=== PATIENT | male | born 1995 | race Caucasian/White ===

== ENCOUNTER 2021-06-16 12:21 | Inpatient (IN) | payer OTHER ==
[~2021-06-16] VITALS: Ht 188 cm; Wt 83.9 kg
[2021-06-17 19:30] VITALS: BP 140/89
[2021-06-17] MEDS ORDERED: ACETAMINOPHEN 325 MG TABLET PO PRN (20:00)
[2021-06-17] MEDS ORDERED: BISACODYL 5 MG EC TABLET PO PRN (20:15)
[2021-06-17] MEDS ORDERED: MAGNESIUM HYDROXIDE SUSPENSION 30 ML UDCUP PO PRN (20:15)
[2021-06-17] MEDS ORDERED: OxyCODONE HCL/ACETAMINOPHEN 5-325 MG TABLET PO PRN (20:15)
[2021-06-17] MEDS ORDERED: CYCLOBENZAPRINE HCL 10 MG TABLET PO PRN (20:15)
[2021-06-17] MEDS: MELATONIN 3 MG TABLET PO PRN (20:43)
[2021-06-17] MEDS: SENNA 187 MG TABLET PO SCH (20:43)
[2021-06-17] MEDS: ASCORBIC ACID 500 MG TABLET PO SCH (20:43)
[2021-06-17] MEDS: ETHYL ALCOHOL 62% ANTISEPTIC NASAL INHALANT 0.6 ML AMPUL NASAL SCH (20:43)
[2021-06-17] MEDS: DOCUSATE SODIUM 100 MG CAPSULE PO SCH (20:43)
[2021-06-17] MEDS: GABAPENTIN 100 MG CAPSULE PO SCH (20:46)
[2021-06-18 00:34] VITALS: BP 136/68
[2021-06-18] MEDS: DOCUSATE SODIUM 100 MG CAPSULE PO SCH ×2 (08:10→21:44)
[2021-06-18] MEDS: ETHYL ALCOHOL 62% ANTISEPTIC NASAL INHALANT 0.6 ML AMPUL NASAL SCH ×2 (08:10→21:33)
[2021-06-18] MEDS: ASCORBIC ACID 500 MG TABLET PO SCH ×2 (08:10→21:33)
[2021-06-18] MEDS: GABAPENTIN 100 MG CAPSULE PO SCH ×3 (08:10→21:33)
[2021-06-18] MEDS: MULTIVITAMINS WITH MINERALS, THERAPEUTIC TABLET PO SCH (08:10)
[2021-06-18] MEDS: ENOXAPARIN SODIUM 40 MG/0.4 ML PF SYRINGE SQ SCH (08:10)
[2021-06-18] MEDS: TAMSULOSIN HCL 0.4 MG CAPSULE PO SCH (08:10)
[2021-06-18 08:20] VITALS: BP 141/79
[2021-06-18] MEDS: OxyCODONE HCL/ACETAMINOPHEN 10-325 MG TABLET PO PRN ×2 (08:20→21:33)
[2021-06-18 08:38] LABS: BASOPHILS % (AUTO) 1.2 % (0.0-2.0); EOSINOPHILS % (AUTO) 6.9 % (1.0-6.0); HEMOGLOBIN 11.4 g/dL (13.5-17.5); LYMPHOCYTES % (AUTO) 18.1 % (22.0-44.0); MEAN CORPUSCULAR HEMOGLOBIN 30.7 pg (26.0-34.0); MEAN CORPUSCULAR HGB CONC 34.7 G/dL (31.0-37.0); MEAN CORPUSCULAR VOLUME 89 fL (80-100); MONOCYTES # (AUTO) 0.5 K/uL (0.1-1.0); MONOCYTES % (AUTO) 8.9 % (2.0-9.0); NEUTROPHILS # (AUTO) 3.6 K/uL (1.8-7.7); NEUTROPHILS % (AUTO) 64.9 % (40.0-70.0); PLATELET COUNT (AUTO) 188 K/uL (150-450); RED BLOOD CELL COUNT(AUTO) 3.72 MIL/uL (4.50-5.90)
[2021-06-18 09:08] LABS: ALANINE AMINOTRANSFERASE 99 U/L (12-78); ALKALINE PHOSPHATASE 57 U/L (46-116); ANION GAP 9 mmol/L (8-16); ASPARTATE AMINOTRANSFERASE 121 U/L (15-37); BILIRUBIN,TOTAL 1.1 mg/dL (0.1-1.0); CALCIUM, TOTAL 8.3 mg/dL (8.8-10.5); CARBON DIOXIDE 25 mmol/L (22-29); CHLORIDE 105 mmol/L (98-107); CREATININE 1.01 mg/dL (0.60-1.30); GLOMERULAR FILTR. RATE CALC > 60 mL/min (>60); GLUCOSE,RANDOM 131 mg/dL (70-110); POTASSIUM 4.2 mmol/L (3.5-5.1); SODIUM SERUM 139 mmol/L (136-145); TOTAL PROTEIN, SERUM 6.4 g/dL (6.4-8.2); UREA NITROGEN, BLOOD 16 mg/dL (7-18)
[2021-06-18 16:04] VITALS: BP 134/67
[2021-06-18] MEDS: SENNA 187 MG TABLET PO SCH (21:33)
[2021-06-18] MEDS: MELATONIN 3 MG TABLET PO PRN (21:33)
[2021-06-19 05:42] VITALS: BP 140/69
[2021-06-19 08:02] VITALS: BP 123/74
[2021-06-19] MEDS ORDERED: OxyCODONE HCL 5 MG IR TABLET PO PRN (08:45)
[2021-06-19] MEDS: ETHYL ALCOHOL 62% ANTISEPTIC NASAL INHALANT 0.6 ML AMPUL NASAL SCH ×2 (09:14→20:26)
[2021-06-19] MEDS: DOCUSATE SODIUM 100 MG CAPSULE PO SCH ×2 (09:14→20:25)
[2021-06-19] MEDS: TAMSULOSIN HCL 0.4 MG CAPSULE PO SCH (09:14)
[2021-06-19] MEDS: MULTIVITAMINS WITH MINERALS, THERAPEUTIC TABLET PO SCH (09:15)
[2021-06-19] MEDS: ASCORBIC ACID 500 MG TABLET PO SCH ×2 (09:15→20:25)
[2021-06-19] MEDS: GABAPENTIN 100 MG CAPSULE PO SCH ×3 (09:15→20:26)
[2021-06-19] MEDS: ENOXAPARIN SODIUM 40 MG/0.4 ML PF SYRINGE SQ SCH (09:15)
[2021-06-19 17:11] VITALS: BP 130/67
[2021-06-19] MEDS: OxyCODONE HCL 10 MG IR TABLET PO PRN (20:25)
[2021-06-19] MEDS: SENNA 187 MG TABLET PO SCH (20:25)
[2021-06-19] MEDS: MELATONIN 5 MG TABLET PO PRN (20:25)
[2021-06-20 00:35] VITALS: BP 136/86
[2021-06-20] MEDS: ASCORBIC ACID 500 MG TABLET PO SCH ×2 (07:55→21:31)
[2021-06-20] MEDS: TAMSULOSIN HCL 0.4 MG CAPSULE PO SCH (07:55)
[2021-06-20] MEDS: DOCUSATE SODIUM 100 MG CAPSULE PO SCH ×2 (07:55→21:31)
[2021-06-20] MEDS: GABAPENTIN 100 MG CAPSULE PO SCH ×3 (07:55→21:31)
[2021-06-20] MEDS: ETHYL ALCOHOL 62% ANTISEPTIC NASAL INHALANT 0.6 ML AMPUL NASAL SCH ×2 (07:55→21:30)
[2021-06-20] MEDS: MULTIVITAMINS WITH MINERALS, THERAPEUTIC TABLET PO SCH (07:55)
[2021-06-20 07:57] LABS: ALANINE AMINOTRANSFERASE 254 U/L (12-78); ALBUMIN 3.5 g/dL (3.4-5.0); ALKALINE PHOSPHATASE 65 U/L (46-116); ANION GAP 9 mmol/L (8-16); ASPARTATE AMINOTRANSFERASE 150 U/L (15-37); BILIRUBIN,TOTAL 1.1 mg/dL (0.1-1.0); CARBON DIOXIDE 25 mmol/L (22-29); CHLORIDE 104 mmol/L (98-107); CREATININE 0.95 mg/dL (0.60-1.30); GLOMERULAR FILTR. RATE CALC > 60 mL/min (>60); GLUCOSE,RANDOM 96 mg/dL (70-110); POTASSIUM 4.2 mmol/L (3.5-5.1); SODIUM SERUM 138 mmol/L (136-145); TOTAL PROTEIN, SERUM 7.4 g/dL (6.4-8.2); UREA NITROGEN, BLOOD 20 mg/dL (7-18)
[2021-06-20 08:01] VITALS: BP 123/69
[2021-06-20] MEDS: ENOXAPARIN SODIUM 40 MG/0.4 ML PF SYRINGE SQ SCH (09:53)
[2021-06-20 16:02] VITALS: BP 108/67
[2021-06-20] MEDS: SENNA 187 MG TABLET PO SCH (21:30)
[2021-06-20] MEDS: MELATONIN 5 MG TABLET PO PRN (21:31)
[2021-06-21] VITALS: BP 128/64
[2021-06-21 08:00] VITALS: BP 127/69
[2021-06-21 08:06] LABS: HEPATITIS C AB (EIA) <0.1 s/co ratio (0.0-0.9)
[2021-06-21] MEDS: GABAPENTIN 100 MG CAPSULE PO SCH ×3 (09:08→20:16)
[2021-06-21] MEDS: ENOXAPARIN SODIUM 40 MG/0.4 ML PF SYRINGE SQ SCH (09:08)
[2021-06-21] MEDS: ASCORBIC ACID 500 MG TABLET PO SCH ×2 (09:08→20:16)
[2021-06-21] MEDS: TAMSULOSIN HCL 0.4 MG CAPSULE PO SCH (09:08)
[2021-06-21] MEDS: DOCUSATE SODIUM 100 MG CAPSULE PO SCH ×2 (09:08→20:16)
[2021-06-21] MEDS: MULTIVITAMINS WITH MINERALS, THERAPEUTIC TABLET PO SCH (09:08)
[2021-06-21] MEDS: ETHYL ALCOHOL 62% ANTISEPTIC NASAL INHALANT 0.6 ML AMPUL NASAL SCH ×2 (09:09→20:15)
[2021-06-21 16:01] VITALS: BP 127/73
[2021-06-21] MEDS: SENNA 187 MG TABLET PO SCH (20:16)
[2021-06-21] MEDS ORDERED: DOCU-270 PO (21:57)
[2021-06-21] MEDS ORDERED: GABA-1216 PO (21:59)
[2021-06-21] MEDS ORDERED: TAMS-13 PO (21:59)
[2021-06-21] MEDS ORDERED: MULT-1239 PO (22:00)
[2021-06-21] MEDS ORDERED: ASCO500 PO (22:01)
[2021-06-21] MEDS ORDERED: MELA5TAB40 PO (22:03)
[2021-06-22 04:30] VITALS: BP 134/75
[2021-06-22] MEDS: ETHYL ALCOHOL 62% ANTISEPTIC NASAL INHALANT 0.6 ML AMPUL NASAL SCH ×2 (08:09→20:28)
[2021-06-22] MEDS: MULTIVITAMINS WITH MINERALS, THERAPEUTIC TABLET PO SCH (08:09)
[2021-06-22] MEDS: DOCUSATE SODIUM 100 MG CAPSULE PO SCH ×2 (08:09→20:28)
[2021-06-22] MEDS: ENOXAPARIN SODIUM 40 MG/0.4 ML PF SYRINGE SQ SCH (08:09)
[2021-06-22] MEDS: ASCORBIC ACID 500 MG TABLET PO SCH ×2 (08:10→20:28)
[2021-06-22] MEDS: TAMSULOSIN HCL 0.4 MG CAPSULE PO SCH (08:10)
[2021-06-22] MEDS: GABAPENTIN 100 MG CAPSULE PO SCH ×3 (08:10→20:28)
[2021-06-22 09:08] VITALS: BP 132/73
[2021-06-22 16:39] VITALS: BP 119/75
[2021-06-22] MEDS: SENNA 187 MG TABLET PO SCH (20:35)
[2021-06-23] VITALS: BP 113/64
[2021-06-23] MEDS: ETHYL ALCOHOL 62% ANTISEPTIC NASAL INHALANT 0.6 ML AMPUL NASAL SCH ×2 (08:13→20:47)
[2021-06-23] MEDS: MULTIVITAMINS WITH MINERALS, THERAPEUTIC TABLET PO SCH (08:14)
[2021-06-23] MEDS: ASCORBIC ACID 500 MG TABLET PO SCH ×2 (08:14→20:48)
[2021-06-23] MEDS: GABAPENTIN 100 MG CAPSULE PO SCH ×3 (08:14→20:48)
[2021-06-23] MEDS: TAMSULOSIN HCL 0.4 MG CAPSULE PO SCH (08:14)
[2021-06-23] MEDS: DOCUSATE SODIUM 100 MG CAPSULE PO SCH ×2 (08:14→20:48)
[2021-06-23] MEDS: ENOXAPARIN SODIUM 40 MG/0.4 ML PF SYRINGE SQ SCH (08:15)
[2021-06-23 10:31] VITALS: BP 140/79
[2021-06-23 18:02] VITALS: BP 140/92
[2021-06-23] MEDS: TraZODone HCL 100 MG TABLET PO SCH (20:48)
[2021-06-23] MEDS: SENNA 187 MG TABLET PO SCH (20:54)
[2021-06-24 00:06] VITALS: BP 127/75
[2021-06-24] MEDS: TAMSULOSIN HCL 0.4 MG CAPSULE PO SCH (07:36)
[2021-06-24] MEDS: ASCORBIC ACID 500 MG TABLET PO SCH ×2 (07:36→20:53)
[2021-06-24] MEDS: ENOXAPARIN SODIUM 40 MG/0.4 ML PF SYRINGE SQ SCH (07:36)
[2021-06-24] MEDS: MULTIVITAMINS WITH MINERALS, THERAPEUTIC TABLET PO SCH (07:36)
[2021-06-24] MEDS: GABAPENTIN 100 MG CAPSULE PO SCH ×3 (07:36→20:53)
[2021-06-24] MEDS: ETHYL ALCOHOL 62% ANTISEPTIC NASAL INHALANT 0.6 ML AMPUL NASAL SCH ×2 (07:36→20:52)
[2021-06-24] MEDS: DOCUSATE SODIUM 100 MG CAPSULE PO SCH ×2 (07:37→20:52)
[2021-06-24 08:05] VITALS: BP 145/77
[2021-06-24 15:00] VITALS: BP 135/59
[2021-06-24 15:10] LABS: ALANINE AMINOTRANSFERASE 112 U/L (12-78); ALBUMIN 3.9 g/dL (3.4-5.0); ALKALINE PHOSPHATASE 82 U/L (46-116); ANION GAP 6 mmol/L (8-16); ASPARTATE AMINOTRANSFERASE 33 U/L (15-37); BILIRUBIN,TOTAL 0.6 mg/dL (0.1-1.0); CARBON DIOXIDE 31 mmol/L (22-29); CHLORIDE 100 mmol/L (98-107); CREATININE 1.08 mg/dL (0.60-1.30); GLOMERULAR FILTR. RATE CALC > 60 mL/min (>60); GLUCOSE,RANDOM 117 mg/dL (70-110); POTASSIUM 3.9 mmol/L (3.5-5.1); SODIUM SERUM 137 mmol/L (136-145); TOTAL PROTEIN, SERUM 7.5 g/dL (6.4-8.2); UREA NITROGEN, BLOOD 18 mg/dL (7-18)
[2021-06-24] MEDS: TraZODone HCL 100 MG TABLET PO SCH (20:53)
[2021-06-24] MEDS: SENNA 187 MG TABLET PO SCH (20:53)
[2021-06-25 06:19] VITALS: BP 146/74
[2021-06-25] MEDS: DOCUSATE SODIUM 100 MG CAPSULE PO SCH ×2 (09:57→20:59)
[2021-06-25] MEDS: ENOXAPARIN SODIUM 40 MG/0.4 ML PF SYRINGE SQ SCH (09:57)
[2021-06-25] MEDS: ETHYL ALCOHOL 62% ANTISEPTIC NASAL INHALANT 0.6 ML AMPUL NASAL SCH ×2 (09:58→20:58)
[2021-06-25] MEDS: MULTIVITAMINS WITH MINERALS, THERAPEUTIC TABLET PO SCH (09:58)
[2021-06-25] MEDS: GABAPENTIN 100 MG CAPSULE PO SCH ×3 (09:58→20:59)
[2021-06-25] MEDS: ASCORBIC ACID 500 MG TABLET PO SCH ×2 (09:58→20:59)
[2021-06-25] MEDS: TAMSULOSIN HCL 0.4 MG CAPSULE PO SCH (09:58)
[2021-06-25 12:03] VITALS: BP 130/71
[2021-06-25 16:33] VITALS: BP 142/85
[2021-06-25] MEDS: TraZODone HCL 100 MG TABLET PO SCH (20:59)
[2021-06-25] MEDS: SENNA 187 MG TABLET PO SCH (20:59)
[2021-06-25] MEDS: OxyCODONE HCL 10 MG IR TABLET PO PRN (21:20)
[2021-06-26 06:13] VITALS: BP 138/66
[2021-06-26] MEDS: DOCUSATE SODIUM 100 MG CAPSULE PO SCH ×2 (08:39→22:05)
[2021-06-26] MEDS: ENOXAPARIN SODIUM 40 MG/0.4 ML PF SYRINGE SQ SCH (08:39)
[2021-06-26] MEDS: ASCORBIC ACID 500 MG TABLET PO SCH ×2 (08:39→22:05)
[2021-06-26] MEDS: ETHYL ALCOHOL 62% ANTISEPTIC NASAL INHALANT 0.6 ML AMPUL NASAL SCH ×2 (08:39→22:06)
[2021-06-26] MEDS: GABAPENTIN 100 MG CAPSULE PO SCH ×3 (08:39→22:06)
[2021-06-26] MEDS: TAMSULOSIN HCL 0.4 MG CAPSULE PO SCH (08:40)
[2021-06-26] MEDS: MULTIVITAMINS WITH MINERALS, THERAPEUTIC TABLET PO SCH (08:40)
[2021-06-26 15:34] VITALS: BP 134/75
[2021-06-26 16:00] VITALS: BP 135/71
[2021-06-26] MEDS: SENNA 187 MG TABLET PO SCH (22:05)
[2021-06-26] MEDS: TraZODone HCL 100 MG TABLET PO SCH (22:05)
[2021-06-26] MEDS: DiphenhydrAMINE HCL 25 MG CAPSULE PO PRN (22:06)
[2021-06-27] VITALS: BP 145/75
[2021-06-27] MEDS ORDERED: TRAZ-257 PO (05:44)
[2021-06-27] MEDS: ETHYL ALCOHOL 62% ANTISEPTIC NASAL INHALANT 0.6 ML AMPUL NASAL SCH ×2 (08:19→21:08)
[2021-06-27] MEDS: MULTIVITAMINS WITH MINERALS, THERAPEUTIC TABLET PO SCH (08:20)
[2021-06-27] MEDS: ASCORBIC ACID 500 MG TABLET PO SCH ×2 (08:20→21:08)
[2021-06-27] MEDS: DOCUSATE SODIUM 100 MG CAPSULE PO SCH ×2 (08:20→21:08)
[2021-06-27] MEDS: GABAPENTIN 100 MG CAPSULE PO SCH ×3 (08:20→22:12)
[2021-06-27] MEDS: TAMSULOSIN HCL 0.4 MG CAPSULE PO SCH (08:20)
[2021-06-27] MEDS: ENOXAPARIN SODIUM 40 MG/0.4 ML PF SYRINGE SQ SCH (08:21)
[2021-06-27 08:50] VITALS: BP 136/64
[2021-06-27 15:18] VITALS: BP 138/71
[2021-06-27] MEDS: SENNA 187 MG TABLET PO SCH (21:08)
[2021-06-27] MEDS: TraZODone HCL 100 MG TABLET PO SCH (21:08)
[2021-06-27 23:00] VITALS: BP 121/66
[2021-06-27] MEDS: DiphenhydrAMINE HCL 25 MG CAPSULE PO PRN (23:01)
[2021-06-28] MEDS: ETHYL ALCOHOL 62% ANTISEPTIC NASAL INHALANT 0.6 ML AMPUL NASAL SCH ×2 (08:23→21:24)
[2021-06-28] MEDS: DOCUSATE SODIUM 100 MG CAPSULE PO SCH ×3 (08:23→21:00)
[2021-06-28] MEDS: GABAPENTIN 100 MG CAPSULE PO SCH ×3 (08:23→21:26)
[2021-06-28] MEDS: TAMSULOSIN HCL 0.4 MG CAPSULE PO SCH (08:23)
[2021-06-28] MEDS: ENOXAPARIN SODIUM 40 MG/0.4 ML PF SYRINGE SQ SCH (08:23)
[2021-06-28] MEDS: MULTIVITAMINS WITH MINERALS, THERAPEUTIC TABLET PO SCH (08:23)
[2021-06-28] MEDS: ASCORBIC ACID 500 MG TABLET PO SCH ×2 (08:23→21:25)
[2021-06-28 08:50] VITALS: BP 125/76
[2021-06-28 11:49] LABS: HEMATOCRIT 40.1 % (41-53); HEMOGLOBIN 13.7 g/dL (13.5-17.5); LYMPHOCYTES # (AUTO) 1.4 K/uL (1.0-4.8); LYMPHOCYTES % (AUTO) 22.4 % (22.0-44.0); MEAN CORPUSCULAR HEMOGLOBIN 30.2 pg (26.0-34.0); MEAN CORPUSCULAR VOLUME 89 fL (80-100); MONOCYTES # (AUTO) 0.4 K/uL (0.1-1.0); MONOCYTES % (AUTO) 5.8 % (2.0-9.0); NEUTROPHILS # (AUTO) 4.2 K/uL (1.8-7.7); NEUTROPHILS % (AUTO) 69.8 % (40.0-70.0); PLATELET COUNT (AUTO) 408 K/uL (150-450); RED BLOOD CELL COUNT(AUTO) 4.52 MIL/uL (4.50-5.90); RED CELL DISTRIBUTION WIDTH 13.9 % (11.5-14.5)
[2021-06-28 16:00] VITALS: BP 140/74
[2021-06-28] MEDS: SENNA 187 MG TABLET PO SCH (21:00)
[2021-06-28] MEDS: TraZODone HCL 100 MG TABLET PO SCH (21:25)
[2021-06-28] MEDS: DiphenhydrAMINE HCL 25 MG CAPSULE PO PRN (22:27)
[2021-06-29] VITALS: BP 132/70
[2021-06-29] MEDS: DOCUSATE SODIUM 100 MG CAPSULE PO SCH ×3 (08:17→21:00)
[2021-06-29] MEDS: ASCORBIC ACID 500 MG TABLET PO SCH ×2 (08:17→21:14)
[2021-06-29] MEDS: ENOXAPARIN SODIUM 40 MG/0.4 ML PF SYRINGE SQ SCH (08:17)
[2021-06-29] MEDS: ETHYL ALCOHOL 62% ANTISEPTIC NASAL INHALANT 0.6 ML AMPUL NASAL SCH ×2 (08:17→21:13)
[2021-06-29] MEDS: GABAPENTIN 100 MG CAPSULE PO SCH ×3 (08:18→21:14)
[2021-06-29] MEDS: TAMSULOSIN HCL 0.4 MG CAPSULE PO SCH (08:18)
[2021-06-29] MEDS: MULTIVITAMINS WITH MINERALS, THERAPEUTIC TABLET PO SCH (08:18)
[2021-06-29 08:30] VITALS: BP 136/66
[2021-06-29 16:00] VITALS: BP 122/70
[2021-06-29] MEDS: SENNA 187 MG TABLET PO SCH (21:00)
[2021-06-29] MEDS: TraZODone HCL 100 MG TABLET PO SCH (21:14)
[2021-06-29] MEDS: DiphenhydrAMINE HCL 25 MG CAPSULE PO PRN (21:14)
[2021-06-30 06:15] VITALS: BP 129/73
[2021-06-30] MEDS: ENOXAPARIN SODIUM 40 MG/0.4 ML PF SYRINGE SQ SCH (08:29)
[2021-06-30] MEDS: GABAPENTIN 100 MG CAPSULE PO SCH ×3 (08:29→20:16)
[2021-06-30] MEDS: MULTIVITAMINS WITH MINERALS, THERAPEUTIC TABLET PO SCH (08:29)
[2021-06-30] MEDS: TAMSULOSIN HCL 0.4 MG CAPSULE PO SCH (08:29)
[2021-06-30] MEDS: ASCORBIC ACID 500 MG TABLET PO SCH ×2 (08:29→20:20)
[2021-06-30] MEDS: ETHYL ALCOHOL 62% ANTISEPTIC NASAL INHALANT 0.6 ML AMPUL NASAL SCH ×2 (08:36→20:16)
[2021-06-30] MEDS: DOCUSATE SODIUM 100 MG CAPSULE PO SCH ×2 (08:36→20:16)
[2021-06-30 08:55] VITALS: BP 126/67
[2021-06-30 16:00] VITALS: BP 133/75
[2021-06-30] MEDS: DiphenhydrAMINE HCL 25 MG CAPSULE PO PRN (20:16)
[2021-06-30] MEDS: SENNA 187 MG TABLET PO SCH (20:16)
[2021-06-30] MEDS: TraZODone HCL 100 MG TABLET PO SCH (20:16)
[2021-07-01 06:21] VITALS: BP 118/66
[2021-07-01 08:00] VITALS: BP 130/80
[2021-07-01] MEDS: MULTIVITAMINS WITH MINERALS, THERAPEUTIC TABLET PO SCH (09:18)
[2021-07-01] MEDS: ENOXAPARIN SODIUM 40 MG/0.4 ML PF SYRINGE SQ SCH (09:18)
[2021-07-01] MEDS: GABAPENTIN 100 MG CAPSULE PO SCH (09:18)
[2021-07-01] MEDS: TAMSULOSIN HCL 0.4 MG CAPSULE PO SCH (09:18)
[2021-07-01] MEDS: ASCORBIC ACID 500 MG TABLET PO SCH (09:18)
[2021-07-01] MEDS: DOCUSATE SODIUM 100 MG CAPSULE PO SCH (09:18)
[2021-07-01] MEDS: ETHYL ALCOHOL 62% ANTISEPTIC NASAL INHALANT 0.6 ML AMPUL NASAL SCH ×2 (09:18→20:45)
[2021-07-01 16:53] VITALS: BP 134/77
[2021-07-01] MEDS: TraZODone HCL 100 MG TABLET PO SCH (20:43)
[2021-07-01] MEDS: OxyCODONE HCL 10 MG IR TABLET PO PRN (20:45)
[2021-07-02] MEDS ORDERED: ASPI-2 PO (04:25)
[2021-07-02 06:00] VITALS: BP_SYST 120; BP_DIAS 65; BP_DIAS 75
[2021-07-02] MEDS: ETHYL ALCOHOL 62% ANTISEPTIC NASAL INHALANT 0.6 ML AMPUL NASAL SCH (10:08)
[2021-07-02] MEDS: ENOXAPARIN SODIUM 40 MG/0.4 ML PF SYRINGE SQ SCH (10:08)
[2021-07-02] MEDS: MULTIVITAMINS WITH MINERALS, THERAPEUTIC TABLET PO SCH (10:08)
[2021-07-02 10:40] VITALS: BP 135/78
== END 2021-07-02 15:32 | disposition home or self-care (01) | DRG 563 ==
LOC: 2WR 06-17 19:25
PROVIDERS: ADMIT Physical Medicine & Rehabilitation; ATTEND Physical Medicine & Rehabilitation
DX: S42.392A Other fracture of shaft of left humerus, initial encounter for closed fracture (principal); S82.292A Other fracture of shaft of left tibia, initial encounter for closed fracture; D62 Acute posthemorrhagic anemia; E46 Unspecified protein-calorie malnutrition; S82.452A Displaced comminuted fracture of shaft of left fibula, initial encounter for closed fracture; G47.00 Insomnia, unspecified; R04.0 Epistaxis; K59.00 Constipation, unspecified; R74.01 Elevation of levels of liver transaminase levels; Y92.89 Other specified places as the place of occurrence of the external cause; Y99.8 Other external cause status; V29.88XA Motorcycle rider (driver) (passenger) injured in other specified transport accidents, initial encounter; Z68.23 Body mass index [BMI] 23.0-23.9, adult
CPT/HCPCS: 80053; 80074; 85025; 86140; 87081; 97110; 97116; 97140; 97150; 97162; 97167; 97530; 97535; 99366; J1650; Q9967